=== PATIENT | female | born 1955 | race Caucasian/White ===

== ENCOUNTER 2018-07-22 12:57 | Outpatient (CLI) | payer OTHER ==
--- NOTE | 2018-07-22 17:21 | MMO ---
BILATERAL SCREENING MAMMOGRAM: 07/22/18 INDICATION: Annual exam. COMPARISON: Prior exam dated 05/26/17, 11/01/15. FINDINGS: Interpretation of the examination was assisted with computer aided detection. There are bilateral breast implants. There is scattered fibroglandular elements. No suspicious mass, cluster of microcalcifications or area or architectural distortion evident. IMPRESSION: BIRADS 2: Benign Finding(s) Routine annual screening mammography (for women over age 40). POS: FRANCIS
== END 2018-07-22 12:58 | disposition home or self-care (01) ==
LOC: SCSMAMMO 12:57
PROVIDERS: ATTEND Family Medicine
DX: Z12.31 Encounter for screening mammogram for malignant neoplasm of breast (principal)
CPT/HCPCS: 77067

== ENCOUNTER 2020-01-10 08:47 | Outpatient (CLI) | payer OTHER ==
--- NOTE | 2020-01-10 09:51 | MMO ---
Left Breast MAMMO Unilat Diag DDI LT+DAVID. CLINICAL HISTORY: Patient is 64 years old and is seen for diagnostic exam. VIEWS: The views performed were: . FILMS COMPARED: The present examination has been compared to prior imaging studies performed at [facility] on 01/10/2020, and at [facility] on 07/27/2019 and 08/02/2019. This study has been interpreted with the assistance of computer-aided detection. MAMMOGRAM FINDINGS: There are scattered fibroglandular densities. Cyst inner left breast remains stable on mammogram and ultrasound. See ultrasound report. IMPRESSION: FINDING IN THE LEFT BREAST IS PROBABLY BENIGN. FOLLOW-UP IN 6 MONTHS IS RECOMMENDED. THE RESULTS OF THIS EXAM WERE SENT TO THE PATIENT. ACR BI-RADS Category 3 - Probably benign finding - short interval follow-up suggested. [facility] will notify the patient of the need for additional imaging services. MAMMOGRAPHY NOTE: 1. A negative mammogram report should not delay a biopsy if a dominant of clinically suspicious mass is present. 2. Approximately 10% to 15% of breast cancers are not detected by mammography. 3. Adenosis and dense breasts may obscure an underlying neoplasm. Reported by: HOMAR PRAJAPATI MD Electonically Signed: [id number]
--- NOTE | 2020-01-10 09:58 | ULT ---
ULTRASOUND LEFT BREAST: INDICATION: Followup ultrasound left breast performed as recommended from prior imaging study from [facility] in July 2019. Comparison is made to that exam. FINDINGS: A small oblong-shaped cyst at 8 o'clock is again seen measuring 2.5 cm greatest dimension. No suspic ious abnormality. This cyst is anechoic on today's exam. IMPRESSION: [place]-shaped cyst at 8 o'clock has a benign appearance. Recommend continued followup with repeat ev aluation in 6 months which will be time for patient's bilateral study. BIRADS 3: Probably benign. Six-month followup recommended.
== END 2020-01-10 08:48 | disposition home or self-care (01) ==
LOC: BICMAMMO 08:47
PROVIDERS: ATTEND Obstetrics & Gynecology
DX: R92.2 Inconclusive mammogram (principal); N60.02 Solitary cyst of left breast
CPT/HCPCS: G0279

== ENCOUNTER 2020-06-28 14:32 | Outpatient (CLI) | payer OTHER ==
--- NOTE | 2020-06-28 15:31 | MMO ---
Bilateral MAMMO Bilat Diag DDI+DAVID. CLINICAL HISTORY: Patient is 64 years old and is seen for follow-up at short-interval from prior study. The patient has the following family history of breast cancer: sister. The patient has no personal history of cancer. The patient has a history of bilateral Implants in 1999. VIEWS: The views performed were: bilateral craniocaudal with tomosynthesis; bilateral mediolateral oblique with tomosynthesis; bilateral mediolateral with tomosynthesis; and bilateral Implant displaced with tomosynthesis. FILMS COMPARED: The present examination has been compared to prior imaging studies performed at [facility] on 01/10/2020 and 06/28/2020, and at [facility] on 08/02/2019. This study has been interpreted with the assistance of computer-aided detection. MAMMOGRAM FINDINGS: There are scattered fibroglandular densities. There is an oval mass measuring 7 millimeters with circumscribed margins seen in the left breast. Finding remains unchanged from the prior study. The mass was shown to be a cyst on ultrasound. There are no suspicious masses, suspicious calcifications, or new areas of architectural distortion. IMPRESSION: THERE IS NO MAMMOGRAPHIC EVIDENCE OF MALIGNANCY. A ROUTINE FOLLOW-UP MAMMOGRAM IN 1 YEAR IS RECOMMENDED. THE RESULTS OF THIS EXAM WERE SENT TO THE PATIENT. ACR BI-RADS Category 2 - Benign finding MAMMOGRAPHY NOTE: 1. A negative mammogram report should not delay a biopsy if a dominant of clinically suspicious mass is present. 2. Approximately 10% to 15% of breast cancers are not detected by mammography. 3. Adenosis and dense breasts may obscure an underlying neoplasm. Reported by: CHUCKIE MADRID MD Electonically Signed: [id number]
--- NOTE | 2020-06-28 15:31 | ULT ---
ULTRASOUND LEFT BREAST LIMITED: 06/28/20 HISTORY: Follow-up left breast lesion in 64-year-old female. COMPARISON: 01/10/20. TECHNIQUE: Focused ultrasound of 8 o'clock position of left lower inner quadrant. FINDINGS: At the 8 o'clock position, 5 cm from the nipple, there is a wider than tall, well circumscribed, nons hadowing 0.7 x 0.3 x 0.6 cm lesion with anechoic internal contents, no blood flow, and mildly thicken ed bang diffusely. It has not changed. No acoustic shadowing. No architectural distortion. This is c onsistent with a cyst with slightly thick bang. No interval change overall. IMPRESSION: 1. BIRADS 2: Benign Finding(s) Routine annual screening mammography (for women over age 40). 2. Patient may return to annual screening mammography. POS: OFF
--- NOTE | 2020-06-28 15:43 | BD ---
Exam: DEXA Bone Density 06/28/20 HISTORY: Postmenopausal screening for osteoporosis. Lumbar Spine: BMD (g/cm2) T-SCORE Z-SCORE L1 0.859 -1.2 0.2 L2 1.025 0.1 1.6 L3 1.140 0.5 2.2 L4 1.029 -0.3 1.4 L1-L4 1.017 -0.3 1.3 Femoral Neck: 0.558 -2.6 -1.2 Total Femur: 0.802 -1.1 -0.1 There has been interval improvement of 12.9% in the BMD of the lumbar spine and an improvement of 2.2 % in the BMD of the left proximal femur since 06/14/14. Impression: Osteoporosis. POS: AH
== END 2020-06-28 14:33 | disposition home or self-care (01) ==
LOC: BICMAMMO 14:32
PROVIDERS: ATTEND Obstetrics & Gynecology
DX: M81.0 Age-related osteoporosis without current pathological fracture (principal); N60.02 Solitary cyst of left breast; M85.88 Other specified disorders of bone density and structure, other site
CPT/HCPCS: 77066; 77080; G0279

== ENCOUNTER 2020-08-15 08:09 | Outpatient (CLI) | payer OTHER ==
--- NOTE | 2020-08-15 09:22 | MRI ---
EXAM: Left hip MRI Without contrast: HISTORY: Left hip pain following injury from a fall 6 weeks ago COMPARISON: None FINDINGS: Multiplanar, multisequence MRI examination of the hip is performed. No evidence for abnormal marrow signal to suggest avascular necrosis, fracture, or acute stress injur y. Gluteus medius and gluteus minimus muscle tendon insertions:Unremarkable. Common hamstring tendon insertion:Unremarkable. Acetabular hip labrum:Minimal irregularity and blunting with some undersurface increased signal invol ving the anterior and superior labrum evidence for probable degenerative tearing and fraying. Several small subchondral cysts involving the superior right acetabulum. Trochanteric bursa region:Unremarkable. Muscles and mild tenderness regions:Unremarkable. Superficial soft tissues:Unremarkable. Soft tissue pelvis: Unremarkable. IMPRESSION: Minimal degenerative/arthrosis changes of both hip joints. Evidence for probable degenerative tearing/fraying of the anterior superior left hip labrum. No evidence for abnormal marrow edema to suggest fracture or other acute osseous process.
== END 2020-08-15 08:10 | disposition home or self-care (01) ==
LOC: SCSMRI 08:09
PROVIDERS: ATTEND Nurse Practitioner Family
DX: M25.552 Pain in left hip (principal); M16.0 Bilateral primary osteoarthritis of hip

== ENCOUNTER 2021-08-03 07:46 | Outpatient (CLI) | payer OTHER | END 2021-08-03 07:47 | disposition home or self-care (01) | LOC: BICMAMMO 07:46 | PROVIDERS: ATTEND Internal Medicine Rheumatology | DX: M81.0 Age-related osteoporosis without current pathological fracture (principal) | CPT/HCPCS: 77080 ==

== ENCOUNTER 2021-11-30 10:36 | Outpatient (CLI) | payer BC ==
[2021-11-30] MEDS ORDERED: Iopamidol-370 76% 500 ML 1 ML ONE (11:26)
== END 2021-11-30 10:37 | disposition home or self-care (01) ==
LOC: CT 10:36
PROVIDERS: ATTEND Family Medicine
DX: R10.31 Right lower quadrant pain (principal); M47.816 Spondylosis without myelopathy or radiculopathy, lumbar region; Z90.49 Acquired absence of other specified parts of digestive tract; Z90.710 Acquired absence of both cervix and uterus
CPT/HCPCS: 74177; 82565; Q9967

== ENCOUNTER 2022-09-04 09:46 | Outpatient (CLI) | payer BC | END 2022-09-04 09:47 | disposition home or self-care (01) | LOC: BICMAMMO 09:46 | PROVIDERS: ATTEND Internal Medicine Rheumatology | DX: M81.0 Age-related osteoporosis without current pathological fracture (principal); M85.851 Other specified disorders of bone density and structure, right thigh | CPT/HCPCS: 77080 ==

== ENCOUNTER 2023-11-10 10:03 | Outpatient (CLI) | payer MEDICARE, BC | END 2023-11-10 10:04 | disposition home or self-care (01) | LOC: BICMAMMO 10:03 | PROVIDERS: ATTEND Internal Medicine Rheumatology | DX: M81.0 Age-related osteoporosis without current pathological fracture (principal); M85.851 Other specified disorders of bone density and structure, right thigh | CPT/HCPCS: 77080 ==

== ENCOUNTER 2025-05-19 11:43 | Emergency (ER) | payer MEDICARE, BC ==
[2025-05-19 12:50] LABS: #Basophils 0.15 10x3/uL (0.0-0.2); #Eosinophils 0.28 10x3/uL (0.0-0.7); #Monocytes 0.73 10x3/uL (0.11-0.59); #Neutrophils 5.47 10x3/uL (1.40-6.50); %Basophils 1.8 % (0.0-1.0); %Eosinophils 3.3 % (0.0-10.0); %Lymphocytes 20.8 % (21.0-51.0); %Monocytes 8.7 % (0.0-10.0); %Neutrophils 65.0 % (42.0-75.0); Hematocrit 44.3 % (36.0-47.0); Hemoglobin 13.7 g/dL (12.0-16.0); Mean Corpuscular Hemoglobin 30.7 pg (27.0-31.0); Mean Corpuscular Volume 99.3 fL (78.0-98.0); Platelet Count 378 10x3/uL (130-400); Red Blood Cell (RBC) Count 4.46 mill/uL (4.20-5.40); White Blood Cell (WBC) Count 8.41 10x3/uL (4.8-10.8)
[2025-05-19] MEDS ORDERED: Ondansetron PF 4 MG/2 ML Vial ONE (12:57)
[2025-05-19 13:11] LABS: ALT (SGPT) Less than 7 U/L (Less than 34); AST (SGOT) 18 U/L (11-34); Albumin 3.4 g/dL (3.1-4.5); Alkaline Phosphatase 58 U/L (40-110); Anion Gap 14 mmol/L (10-20); BUN (Urea Nitrogen) 6 mg/dL (9.8-20.1); Bilirubin, Total 0.2 mg/dL (0.3-1.2); Calc. Creatinine Clearance 0 mL/min (70-130); Calcium 9.2 mg/dL (7.8-10.44); Carbon Dioxide 20 mmol/L (23-31); Chloride 107 mmol/L (98-107); Globulin 3.8 g/dL (2.4-3.5); Glucose 86 mg/dL (80-115); Lipase 33 U/L (8-78); Potassium 4.5 mmol/L (3.5-5.1); Sodium 136 mmol/L (136-145)
[2025-05-19 15:16] LABS: Bacteria/HPF None Seen HPF (None Seen); CAUTI Indications for Culture Pelvic or flank pain; Glucose, Urine (Dipstick) Normal (Negative); Leukocyte Negative Leu/uL (Negative); Protein, Urine (Dipstick) Negative (Neg-Trace); RBC/HPF 0-3 HPF (0-3); Specific Gravity, Urine 1.005 (1.002-1.036); WBC/HPF 0-3 HPF (0-3)
[2025-05-19 15:26] LABS: Urine Culture Reflex No No
== END 2025-05-19 23:30 | disposition short-term general hospital (02) ==
LOC: ERS 11:43
DX: K63.0 Abscess of intestine (principal); R11.2 Nausea with vomiting, unspecified
CPT/HCPCS: 74177; 80053; 81001; 83690; 85025; 87040; 96365; 96375; 99285; J2405; J2543; 36415